=== PATIENT | male | born 1955 | race Two or more races ===

== ENCOUNTER 2016-03-31 21:16 | Emergency (ER) | payer SELFPAY ==
[~2016-03-31] VITALS: Ht 172.7 cm; Wt 74.8 kg
[2016-03-31 22:29] LABS: Basophils # (auto) 0 uL; Basophils % (auto) 0.3 % (0.0-2.0); Eosinophils # (auto) 0.7 uL; Eosinophils % (auto) 6.2 % (0.0-7.0); Hematocrit 42.8 % (41.0-53.0); Hemoglobin 14.4 g/dL (13.5-17.5); Lymphocytes # (auto) 3.1 uL; Lymphocytes % (auto) 28.8 % (10.0-50.0); Mean Corpuscular Hemoglobin 29.6 pg (28.0-32.0); Mean Corpuscular Hgb Conc. 33.7 g/dL (32.0-36.0); Mean Corpuscular Volume 87.8 fL (80.0-100.0); Mean Platelet Volume 7.8 fL (7.4-10.4); Monocytes # (auto) 0.8 uL; Monocytes % (auto) 7.2 % (0.0-12.0); Neutrophils # (auto) 6.2 uL; Neutrophils % (auto) 57.5 % (37.0-80.0); Platelet Count (auto) 278 10^3/uL (140-450); Red Cell Distribution Width 14.2 % (11.6-16.0); White Blood Cell 10.8 10^3/uL (4.4-10.8)
[2016-03-31 22:49] LABS: Albumin 4.2 g/dL (3.4-5.0); BUN/Creatinine Ratio 14.4; Calcium 9.1 mg/dL (8.5-10.1); Potassium 4.1 mmol/L (3.5-5.1)
[2016-03-31 22:52] LABS: Bilirubin, Total 0.5 mg/dL (0.2-1.0); Total Protein 8.6 g/dL (6.4-8.2)
[2016-04-01 03:22] VITALS: BP 140/90
[2016-04-01] MEDS ORDERED: methylPREDNISolone SOD SUCC 125 MG/2 ML VL IM ONE (03:45)
[2016-04-01] MEDS ORDERED: diphenhdrAMINE HCL 50 MG/1 ML VL IM ONE (03:45)
[2016-04-01] MEDS ORDERED: diphenhdrAMINE HCL 50 MG/1 ML VL IV ONE (03:45)
== END 2016-04-01 03:56 | disposition home or self-care (01) ==
LOC: ER 21:30
DX: L25.9 Unspecified contact dermatitis, unspecified cause (principal); T78.40XA Allergy, unspecified, initial encounter; I10 Essential (primary) hypertension
CPT/HCPCS: 36415; 80053; 85025; 96372; 99284; J1200; J2930